=== PATIENT | female | born 1955 | race Caucasian/White ===

== ENCOUNTER → 2017-10-31 09:54 | Day surgery (SDC) | payer BC ==
--- NOTE | 2017-11-01 10:36 | OP ---
DATE OF OPERATION: 10/31/17 - [facility] DATE OF : 59 SURGEON: Nathanael Del Cid MD. PRE-OP DIAGNOSIS: Right vocal cord paralysis. POST-OP DIAGNOSIS: Right vocal cord paralysis. OPERATIVE PROCEDURE: EMG of the right vocal cord using a concentric bipolar needle electrode under local anesthesia. DESCRIPTION OF PROCEDURE: This was done in the local room with [facility] spray technician working with ar. The patient was placed in the supine position. The head was hyperextended. The cricoid cartilage and midline were demarcated and the skin over the cricothyroid membrane was injected with buffered lidocaine. A concentric bipolar electrode, 30 gauge, was inserted through the skin to the cricothyroid membrane and into the right vocal cord. Upon insertion, it was quiet; with phonation of "E," there were brisk compound muscle action potentials more posteriorly. There were rapid onset potentials with less vigorous sustained potentials. There were no random reinnervation potentials observed. The needle was removed. This was consistent with normal electromyography, normal nerve and muscle function. [id number]/[facility] #: [id number] MTDD
== END | disposition home or self-care (01) ==
LOC: OR 09:54
PROVIDERS: ATTEND Otolaryngology
DX: J38.01 Paralysis of vocal cords and larynx, unilateral (principal); R49.0 Dysphonia

== ENCOUNTER 2017-12-10 10:59 | Day surgery (SDC) | payer BC ==
[~2017-12-10 10:59] MED LIST: Buffered Lidocaine 0.9% SYRIN* 5 ML/SYR SYRINGE INTRADERM ONE; Dexamethasone IV* 4 MG/ML 1 ML (4 MG) IV SLOW PU ONE; Famotidine IV* 10 MG/ML 2 ML (20 mg) IV ONE
[2017-12-10] MEDS ORDERED: Buffered Lidocaine 0.9% SYRIN* 5 ML/SYR SYRINGE ONE (11:20)
[2017-12-10] MEDS ORDERED: Dexamethasone IV* 4 MG/ML 1 ML (4 MG) ONE (11:20)
[2017-12-10] MEDS ORDERED: Famotidine TAB* 20 MG ONE (11:20)
[2017-12-10] MEDS ORDERED: fentaNYL* 50 MCG/ML 2 ML VIAL (100 MCG VIAL) ONE (13:21)
[2017-12-10] MEDS ORDERED: Midazolam* 1 MG/ML 2 ML VIAL (2 MG) ONE (13:21)
[2017-12-10] MEDS ORDERED: Succinylcholine* 20 MG/ML 10 ML VIAL ONE ×2 (14:22→14:50)
[2017-12-10] MEDS ORDERED: Lidocaine 1% INJ* 10 MG/ML 30 ML SDV ONE (14:22)
[2017-12-10] MEDS ORDERED: Propofol* 10 MG/ML 20 ML BTL IV PUSH ONE (14:50)
[2017-12-10] MEDS ORDERED: Ondansetron INJ* 2 MG/ML VIAL ONE ×2 (14:50→15:32)
[2017-12-10] MEDS ORDERED: fentaNYL* 50 MCG/ML 2 ML VIAL (100 MCG VIAL) IV PRN (15:12)
[2017-12-10] MEDS ORDERED: Ondansetron INJ* 2 MG/ML VIAL IV PRN (15:12)
[2017-12-10] MEDS ORDERED: Naloxone* 0.4 MG/ML 1 ML VIAL IV PRN (15:12)
[2017-12-10 15:38] VITALS: BP 127/83
--- NOTE | 2017-12-11 06:28 | OP ---
DATE OF OPERATION: 12/10/17 - [facility] DATE OF : 59 SURGEON: Nathanael Del Cid MD ANESTHESIA: General endotracheal anesthesia. PRE-OP DIAGNOSIS: Right vocal cord paralysis, which I think might be secondary to a dislocated cricoarytenoid joint. POST-OP DIAGNOSIS: Right vocal cord paralysis, which I think might be secondary to a dislocated cricoarytenoid joint. OPERATIVE PROCEDURE: Microlaryngoscopy with closed reduction of right cricoarytenoid joint. COMPLICATIONS: None. DISPOSITION: Good. SPECIMENS: None. BLOOD LOSS: None. DESCRIPTION OF PROCEDURE: Patient was taken to the operating room and placed in the supine position on the operating table. General anesthesia was induced, orotracheally intubated, turned and draped for the surgery. Laryngoscope was inserted, suspended from the suspension system and the microscope was brought in. I used microlaryngoscopy spatula and suction to try to manipulate the right arytenoid cartilage back into position. It seemed to slip into place but I removed the endotracheal tube, did some more manipulation and replaced the tube through the laryngoscope and then removed the laryngoscope. Patient tolerated the procedure well, no complications, transferred to the recovery room in stable condition. [id number]/[facility] #: [id number] [facility] MEDICAL CENTERDave
== END 2017-12-10 15:54 | disposition home or self-care (01) ==
LOC: OR 10:59
PROVIDERS: ATTEND Otolaryngology
DX: J38.01 Paralysis of vocal cords and larynx, unilateral (principal); J38.7 Other diseases of larynx; K21.9 Gastro-esophageal reflux disease without esophagitis; M19.90 Unspecified osteoarthritis, unspecified site; K58.9 Irritable bowel syndrome, unspecified
CPT/HCPCS: A9270-GY; J0330; J1100; J2250; J2405; J2704; J3010

== ENCOUNTER 2018-02-09 07:25 | Day surgery (SDC) | payer BC ==
[~2018-02-09 07:25] MED LIST changes: -Famotidine IV* 10 MG/ML 2 ML (20 mg) IV ONE
[2018-02-09] MEDS ORDERED: Clindamycin 900 MG IVPREMIX(* 900 MG/50 ML SDV IV ONE (07:36)
[2018-02-09] MEDS ORDERED: Dexamethasone IV* 4 MG/ML 1 ML (4 MG) ONE (07:36)
[2018-02-09] MEDS ORDERED: Midazolam* 1 MG/ML 5 ML VIAL (5 MG) ONE (09:04)
[2018-02-09] MEDS ORDERED: fentaNYL* 50 MCG/ML 2 ML VIAL (100 MCG VIAL) ONE ×3 (09:04→12:03)
[2018-02-09] MEDS ORDERED: ROPIVACAINE 5 MG/ML 30 ML BTL (0.5%) ONE ×3 (09:21→09:41)
[2018-02-09] MEDS ORDERED: Lidocaine 2% PF * 5 ML VIAL ONE (10:06)
[2018-02-09] MEDS ORDERED: Mivacurium Chloride* 20 MG/10 ML VIAL IV ONE (10:06)
[2018-02-09] MEDS ORDERED: Propofol* 10 MG/ML 20 ML BTL IV PUSH ONE (10:06)
[2018-02-09] MEDS ORDERED: Phenylephrine IV* 40 MCG/ML 10 ML SYRINGE ONE (10:31)
[2018-02-09] MEDS ORDERED: Bupivacaine 0.5% SDV PF* 30ML VIAL ONE (10:39)
[2018-02-09] MEDS ORDERED: PROCHLORPERAZINE INJ 5 MG/ML 2 ML VIAL IV PRN (10:40)
[2018-02-09] MEDS ORDERED: Naloxone* 0.4 MG/ML 1 ML VIAL IV PRN (10:40)
[2018-02-09] MEDS ORDERED: HYDROcodone/ACETAMIN 5-325 MG* 1 TAB PO PRN (10:40)
[2018-02-09] MEDS ORDERED: Ketorolac INJ* 30 MG/ML 1 ML VIAL IV PRN (10:40)
[2018-02-09] MEDS ORDERED: Ondansetron INJ* 2 MG/ML VIAL IV ONE (10:41)
[2018-02-09] MEDS ORDERED: Ketorolac INJ* 30 MG/ML 1 ML VIAL ONE (11:53)
[2018-02-09] MEDS: fentaNYL* 50 MCG/ML 2 ML VIAL (100 MCG VIAL) IV PRN ×4 (11:55→12:16)
[2018-02-09] MEDS ORDERED: oxyCODONE/Acetamin 5/325 MG* TAB ONE (12:03)
[2018-02-09] MEDS: oxyCODONE/Acetamin 5/325 MG* TAB PO PRN ×2 (12:04→12:06)
[2018-02-09] MEDS ORDERED: PROCHLORPERAZINE INJ 5 MG/ML 2 ML VIAL ONE (12:06)
[2018-02-09 14:18] VITALS: BP 105/62
[2018-02-09] MEDS ORDERED: Scopolamine 1.5 mg* PATCH ONE (14:21)
--- NOTE | 2018-02-09 17:52 | RAD ---
INDICATION: Right foot subtalar joint fusion. COMPARISON: Comparison is made with a prior MRI of the right ankle from February 06, 2018. TECHNIQUE: 12 seconds of intermittent fluoroscopic guidance were provided and a single lateral spot film of the right ankle was obtained in the operating room. FINDINGS: There are 2 surgical screws which project over the calcaneus and talus spanning the subtalar joint. IMPRESSION: INTRAOPERATIVE CONTROL FILMS. CPT II Codes: G9500
--- NOTE | 2018-02-09 20:50 | OP ---
DATE OF OPERATION: 02/09/18 - [facility] DATE OF : 59 SURGEON: Alpesh Dudley MD SCREEN EXAMINER: Miranda Hong PA-C PRE-OP DIAGNOSIS: Right subtalar arthrosis. POST-OP DIAGNOSIS: Right subtalar arthrosis. OPERATIVE PROCEDURE: Right subtalar fusion with tibial bone graft. DESCRIPTION OF PROCEDURE: The patient was taken to the operating room, where a lateral longitudinal incision was made centered over the sinus tarsi. We incised directly through the extensor brevis muscle to allow visualization of the sinus tarsi, which was opened with a laminar automat watcher. We prepared the joint for arthrodesis using a 4-mm power bur. We then harvested some cancellous bone proximally at Gerdy's tubercle through a 5- cm longitudinal incision. We opened up the lateral cortex and harvested cancellous bone. We then replaced this with some allograft chips closing the periosteum with 2-0 Vicryl, subcu with 2-0 Vicryl, and a 3-0 Monocryl for the skin. We then placed the allograft mixed with autograft into the subtalar joint fixing this with paired 6.5-mm cannulated screws. X-rays intraoperatively showed satisfactory position of the hardware and good compression obtained. We then irrigated both medial and lateral wounds, closing with 2-0 Vicryl sutures, Prolene for the skin, and ava for the lateral skin wound. A compression dressing and plaster splint was then applied. The patient tolerated the above well. [id number]/[facility] #: [id number] [place]
== END 2018-02-09 15:07 | disposition home or self-care (01) ==
LOC: OR 07:25
PROVIDERS: ATTEND Orthopaedic Surgery
DX: M19.171 Post-traumatic osteoarthritis, right ankle and foot (principal); J45.909 Unspecified asthma, uncomplicated; K21.9 Gastro-esophageal reflux disease without esophagitis; M48.061 Spinal stenosis, lumbar region without neurogenic claudication; Z68.41 Body mass index [BMI] 40.0-44.9, adult; G89.18 Other acute postprocedural pain
CPT/HCPCS: 76000; A9270-GY; C1713; C1776; C9359; J0780; J1100; J1885; J2250; J2405; J2704; J2795; J3010

== ENCOUNTER → 2019-01-21 20:16 | Emergency (ER) | payer BC ==
[2019-01-21 20:41] LABS: ABS Eosinophils 0.2 10^3/ul (0-0.6); ABS Lymphocytes 2.4 10^3/ul (1.0-4.8); ABS Monocytes 0.5 10^3/ul (0-0.8); ABS Neutrophils 4.1 10^3/ul (1.5-7.7); Eosinophil % 2.9 %; Hematocrit 43 % (35-47); Hemoglobin 14.2 g/dL (12.0-16.0); Lymphocyte % 33.1 %; Mean Corpuscular HGB Conc 33 g/dL (31-36); Mean Corpuscular Hemoglobin 29 pg (27-31); Mean Corpuscular Volume 87 fL (80-97); Mean Platelet Volume 7.6 fL (7.4-10.4); Platelet Count 292 10^3/uL (150-450); Red Blood Count 4.91 10^6 /uL (3.70-4.87); Red Cell Distribution Width 15 % (10.5-15); White Blood Count 7.3 10^3/uL (3.5-10.8)
[2019-01-21 20:47] LABS: INR 1.03 (0.82-1.09)
--- NOTE | 2019-01-21 20:54 | ED ---
HPI Chest Pain - HPI Summary HPI Summary: Pt is a 63 y/o F presenting to the ED with a chief complaint of chest pain first onset about 1.5 weeks ago. The pain is intermittent, lasts about 10 seconds at a time, but is very severe and she feels it in her neck, shoulders, back, and L arm, and describes it as pressure. She denies diaphoresis, syncope, fever, chills, cough, or recent illness. She states that she was taking IBU for her L knee which she stated it was not doing much so she switched back to Celebrex, and is wondering if this could be a side effect of the Celebrex. She denies anything making it worse but notes that it happened once when she was stretching, and deep breathing makes it better. She reports hx of an adrenal tumor that flares up sometimes, but no other hx. - History of Current Complaint Chief Complaint: EDChestPainROMI Time Seen by Provider: 01/21/19 20:31 Hx Obtained From: Patient Onset/Duration: Started Days Ago, Still Present Timing: Intermittent, Lasting Seconds Initial Severity: Moderate Current Severity: None Pain Intensity: 0 Pain Scale Used: 0-10 Numeric Chest Pain Location: Diffuse Chest Pain Radiates: Yes Chest Pain Radiates To:: Back, Shoulder, Arm, Neck Character: Pressure/Squeezing Aggravating Factor(s): Nothing Alleviating Factor(s): Rest Associated Signs and Symptoms: Positive: Chest Pain, Back Pain. Negative: Syncope, Fever, Chills, Cough, Other: - recent illness - Allergy/Home Medications Allergies/Adverse Reactions: Allergies Allergy/AdvReac Type Severity Reaction Status Date / Time Penicillins Allergy Rash Verified 01/21/19 20:18 PMH/Surg Hx/FS Hx/Imm Hx Previously Healthy: Yes Endocrine/Hematology History: Denies: Hx Diabetes, Hx Thyroid Disease - HX OF BIOPSY OF THYROID TISSUE-2015 Cardiovascular History: Denies: Hx Congestive Heart Failure, Hx Hypertension, Hx Pacemaker/ICD, Other Cardiovascular Problems/Disorders Respiratory History: Reports: Hx Asthma, Other Respiratory Problems/Disorders - chronic post nasal drip Denies: Hx Chronic Obstructive Pulmonary Disease (COPD) GI History: Reports: Hx Gastroesophageal Reflux Disease - ON MEDICATION FOR, Hx Hiatal Hernia, Hx Irritable Bowel, Hx Ulcer - gerd, Other GI Disorders - SPASTIC COLON History: Reports: Other Problems/Disorders - right adrenal mass Denies: Hx Dialysis, Hx Renal Disease Musculoskeletal History: Reports: Hx Arthritis - KNEES, ANKLES Denies: Hx Osteoporosis, Other Musculoskeletal History Sensory History: Denies: Hx Contacts or Glasses, Hx Hearing Aid Opthamlomology History: Denies: Hx Contacts or Glasses Neurological History: Denies: Other Neuro Impairments/Disorders Psychiatric History: Denies: Hx Panic Disorder - Surgical History Surgery Procedure, Year, and Place: EBUS-10/04/2015 (BIOPSY) ;. HYSTERECTOMY 2002; BILATERAL CARPAL TUNNEL RELEASE 2002 ;. CHEST BLEED-10/06/2015-VENTED X 4 DAYS (NO SURGERY - STARTED AFTER THE BIOPSY) ;. PARATRACHIAL SURGERY FOR A PARATHYROID MASS IN 06/2016-[place] ;. CLOSED REDUCTION ARYTONOID (CARTILAGE ) ; Hx Anesthesia Reactions: No Infectious Disease History: No Infectious Disease History: Denies: Hx Clostridium Difficile, Hx Hepatitis, Hx Human Immunodeficiency Virus (HIV), Hx of Known/Suspected MRSA, Hx Shingles, Hx Tuberculosis, Traveled Outside the in Last 30 Days - Family History Known Family History: Positive: Cardiac Disease - mother had afib, Other - liver CA - grandfather - Social History Alcohol Use: None Hx Substance Use: No Substance Use Type: Reports: None Hx Tobacco Use: No Smoking Status (MU): Never Smoked Tobacco Review of Systems Negative: Fever, Chills, Skin Diaphoresis Positive: Chest Pain Negative: Cough Negative: Syncope All Other Systems Reviewed And Are Negative: Yes Physical Exam - Summary Physical Exam Summary: Appearance: Well-appearing, Well-nourished, lying in bed comfortably Skin: Warm, dry, no obvious rash Eyes: sclera anicteric, no conjunctival pallor ENT: mucous membranes moist, pharynx appears normal Neck: Supple, nontender Respiratory: Clear to auscultation, no signs of respiratory distress Cardiovascular: Normal S1, S2. No murmurs. Normal distal pulses in tibial and radial bilaterally. Abdomen: Soft, nontender, normal active bowel sounds present Musculoskeletal: Normal, Strength/ROM Intact Neurological: A&Ox3, awake and alert, mentation is normal, speech is fluent and appropriate Psychiatric: affect is normal, does not appear anxious or depressed Triage Information Reviewed: Yes Vital Signs On Initial Exam: Initial Vitals Temp Pulse Resp BP Pulse Ox 99.1 F 67 12 134/76 97 05/23/19 20:16 01/21/19 20:16 01/21/19 20:16 01/21/19 20:16 01/21/19 20:16 Vital Signs Reviewed: Yes Diagnostics - Vital Signs Vital Signs Temp Pulse Resp BP Pulse Ox 01/21/19 20:16 99.1 F 67 12 134/76 97 - Laboratory Lab Results: Lab Results 01/21/19 01/21/19 Range/Units 20:34 20:34 WBC 7.3 (3.5-10.8) 10^3/uL RBC 4.91 H (3.70-4.87) 10^6 /uL Hgb 14.2 (12.0-16.0) g/dL Hct 43 (35-47) % MCV 87 (80-97) fL MCH 29 (27-31) pg MCHC 33 (31-36) g/dL RDW 15 (10.5-15) % Plt Count 292 (150-450) 10^3/uL MPV 7.6 (7.4-10.4) fL Neut % (Auto) 56.1 % Lymph % (Auto) 33.1 % [place] % (Auto) 7.3 % Eos % (Auto) 2.9 % Baso % (Auto) 0.6 % Absolute Neuts (auto) 4.1 (1.5-7.7) 10^3/ul Absolute Lymphs (auto) 2.4 (1.0-4.8) 10^3/ul Absolute Monos (auto) 0.5 (0-0.8) 10^3/ul Absolute Eos (auto) 0.2 (0-0.6) 10^3/ul Absolute Basos (auto) 0.0 (0-0.2) 10^3/ul Absolute Nucleated RBC 0.0 10^3/ul Nucleated RBC % 0.0 INR (Anticoag Therapy) 1.03 (0.82-1.09) Result Diagrams: 01/21/19 20:34 01/21/19 20:34 Lab Statement: Any lab studies that have been ordered have been reviewed, and results considered in the medical decision making process. - Radiology CXR Radiology Interpretation Completed By: ED Physician Summary of Radiographic Findings: No acute process. Pending official radiology report. - EKG 2023 Cardiac Rate: NL - 68bpm EKG Rhythm: Sinus Rhythm ST Segment: Normal Ectopy: None Summary of EKG Findings: EKG at 2023 shows NSR at 68bpm with no STEMI. Chest Pain Course/Dx - Course Course Of Treatment: Pt is a 63 y/o F presenting to the ED with a chief complaint of chest pain first onset about 1.5 weeks ago. It is intermittent pressure lasting about 10 seconds, and radiates across her shoulders, neck, back , and L arm. She denies diaphoresis, syncope, fever, chills, cough, or recent illness. She states she's been recently taking Celebrex for her L knee issues and is wondering if the pain could be a side effect of it. She notes it happened once when she was stretching but nothing makes it worse otherwise. The pt has a normal physical exam. EKG at 2023 shows NSR at 68bpm with no STEMI. The pts chemistry results show a BUN of 25, BUN/Creatinine ratio of 32.5, and alkaline phosphate of 108. CXR shows no acute process, pending official radiology report. The pt will be discharged with a dx of chest pain, and she is stable and agreeable with this plan. - Diagnoses Provider Diagnoses: Chest pain Discharge - Sign-Out/Discharge Documenting (check all that apply): Patient Departure Patient Received Moderate/Deep Sedation with Procedure: No - Discharge Plan Condition: Good Disposition: HOME Patient Education Materials: Chest Pain (ED) Referrals: Joshua Goldsmith MD [Primary Care Provider] - Additional Instructions: The evaluation we did tonight demonstrated that there is a very low risk that your symptoms are related to a cardiac or other immediately dangerous condition , so it is safe for you to go home tonight without further testing. However, followup with your doctor is important to get to a more definitive diagnosis. Certainly if your symptoms change, ie. persist longer, occur more frequently, or change in character or severity, we should see you back here. - Billing Disposition and Condition Condition: GOOD Disposition: Home - Attestation Statements Document Initiated by Scribe: Yes Documenting Scribe: Taylor Hyde Provider For Whom Bakariibe is Documenting (Include Credential): Moo Self MD. Scribe Attestation: Taylor Wynn, scribed for Moo Self MD. on 01/26/19 at 1822. Scribe Documentation Reviewed: Yes Provider Attestation: The documentation as recorded by the scribe, Taylor Hyde accurately reflects the service I personally performed and the decisions made by me, Moo Self MD. Status of Scribe Document: Viewed
[2019-01-21 21:01] LABS: Albumin 4.4 g/dL (3.2-5.2); Albumin/Globulin Ratio 1.5 (1-3); BUN/Creatinine Ratio 32.5 (8-20); Calcium 9.6 mg/dL (8.6-10.3); EGFR African American 92.2 (>60); EGFR Non-African American 76.2 (>60); Potassium 4.3 mmol/L (3.5-5.0); Total Bilirubin 0.3 mg/dL (0.2-1.0); Total Protein 7.4 g/dL (6.4-8.9)
[2019-01-21 22:51] VITALS: BP 128/65
== END | disposition home or self-care (01) ==
LOC: ED 20:16
DX: R07.9 Chest pain, unspecified (principal); R94.31 Abnormal electrocardiogram [ECG] [EKG]; J45.909 Unspecified asthma, uncomplicated; K21.9 Gastro-esophageal reflux disease without esophagitis; K58.9 Irritable bowel syndrome, unspecified; K44.9 Diaphragmatic hernia without obstruction or gangrene; Z88.0 Allergy status to penicillin; Z79.899 Other long term (current) drug therapy
CPT/HCPCS: 36415; 71046; 80053; 84484; 85025; 85610; 93005; 99282

== ENCOUNTER 2019-02-05 09:54 | Day surgery (SDC) | payer BC ==
[~2019-02-05 09:54] MED LIST changes: -Buffered Lidocaine 0.9% SYRIN* 5 ML/SYR SYRINGE INTRADERM ONE; +Buffered Lidocaine 1% SYRIN* 1 ML/SYRINGE INTRADERM ONE; -Dexamethasone IV* 4 MG/ML 1 ML (4 MG) IV SLOW PU ONE; +Famotidine IV* 10 MG/ML 2 ML (20 mg) IV ONE; +Lactated Ringers 1000 ML Bag* 1,000 ML IV SCH
[2019-02-05] MEDS ORDERED: Buffered Lidocaine 1% SYRIN* 1 ML/SYRINGE INTRADERM ONE (10:24)
[2019-02-05] MEDS ORDERED: Famotidine IV* 10 MG/ML 2 ML (20 mg) ONE (10:24)
[2019-02-05] MEDS ORDERED: EPINEPHRINE 1 MG/ML 1 ML VIAL ONE (10:58)
[2019-02-05] MEDS ORDERED: Lidocaine 4% TOPICAL* 50 ML TOP.SOLN ONE (11:39)
[2019-02-05] MEDS ORDERED: Oxymetazoline 0.05% NASAL SPR* 15 ML BTL ONE (11:39)
[2019-02-05] MEDS ORDERED: Ondansetron INJ* 2 MG/ML VIAL ONE (11:43)
[2019-02-05] MEDS ORDERED: fentaNYL* 50 MCG/ML 2 ML VIAL (100 MCG VIAL) ONE ×2 (11:43→12:44)
[2019-02-05] MEDS ORDERED: Dexamethasone IV* 4 MG/ML 1 ML (4 MG) ONE (11:43)
[2019-02-05] MEDS ORDERED: Propofol* 10 MG/ML 20 ML BTL ONE (11:43)
[2019-02-05] MEDS ORDERED: Lidocaine 2% PF * 5 ML VIAL ONE (11:43)
[2019-02-05] MEDS ORDERED: Midazolam* 1 MG/ML 5 ML VIAL (5 MG) ONE (11:44)
[2019-02-05] MEDS ORDERED: fentaNYL* 50 MCG/ML 2 ML VIAL (100 MCG VIAL) IV PRN (12:40)
[2019-02-05] MEDS ORDERED: Ondansetron INJ* 2 MG/ML VIAL IV PRN (12:40)
[2019-02-05] MEDS ORDERED: Naloxone* 0.4 MG/ML 1 ML VIAL IV PRN (12:40)
[2019-02-05 14:15] VITALS: BP 144/77
--- NOTE | 2019-02-05 14:33 | OP ---
DATE OF OPERATION: 02/05/19 - [facility] DATE OF : 59 SURGEON: Joshua Del Cid MD ANESTHESIA: General endotracheal anesthesia PRE-OP DIAGNOSIS: Right vocal paralysis POST-OP DIAGNOSIS: Right vocal paralysis OPERATIVE PROCEDURE: Microlaryngoscopy with manipulation of the right arytenoid and Prolaryn Gel injection into the right vocal cord with 1 mL of Prolaryn under general endotracheal anesthesia. COMPLICATIONS: None. DISPOSITION: Good. SPECIMENS: None. ESTIMATED BLOOD LOSS: None. DESCRIPTION OF PROCEDURE: The patient was taken to the operating room and placed in the supine position on the operating table. General anesthesia was induced and she was orotracheally intubated, turned and draped for the surgery. A tooth guard was placed on her upper teeth, the laryngoscope was inserted into the supraglottic larynx to visualize the vocal cords and it was suspended from the suspension system. Microscope was brought in. The first thing I did was take a spatula and suction. I manipulated the arytenoid in various directions, trying to release it and get it to shift back into position. Her vocal cords were anesthetized with 4% lidocaine and oxymetazoline. I then took the Prolaryn Gel, which is the temporary implant, and had it in the injection needle and injected the full 1 mL into several different locations. There was some leakage, so the total amount was not injected. The laryngoscope was released and removed and the tooth guard was removed. The patient tolerated the procedure well. No complications, transferred to recovery room in stable condition. [id number]/[facility] #: [id number] MTDD
== END 2019-02-05 14:15 | disposition home or self-care (01) ==
LOC: OR 09:54
PROVIDERS: ATTEND Otolaryngology
DX: J38.01 Paralysis of vocal cords and larynx, unilateral (principal); R49.0 Dysphonia; K21.9 Gastro-esophageal reflux disease without esophagitis; M19.90 Unspecified osteoarthritis, unspecified site
CPT/HCPCS: A9270-GY; J1100; J2250; J2405; J2704; J3010

== ENCOUNTER → 2019-06-24 09:25 | Day surgery (SDC) | payer BC ==
[~2019-06-24 09:25] MED LIST changes: +Clindamycin 900 MG/D5W BAG(*) 900 MG/50 ML BAG IVPB ONE; +Dexamethasone IV* 4 MG/ML 1 ML (4 MG) ONE; +Famotidine IV* 10 MG/ML 2 ML (20 mg) ONE; +KETAMINE HCL* 50 MG/ML 10 ML VIAL ONE; +Lidocaine 2% PF * 5 ML VIAL ONE; +Midazolam* 1 MG/ML 10 ML VIAL (10 MG) ONE; +Mineral Oil Sterile, TOPICAL* 25 ML BTL ONE; +Naloxone* 0.4 MG/ML 1 ML VIAL IV PRN; +Ondansetron INJ* 2 MG/ML VIAL ONE; +Ondansetron ODT TAB* 4 MG PO PRN; +Propofol* 10 MG/ML 20 ML BTL ONE; +fentaNYL* 50 MCG/ML 2 ML VIAL (100 MCG VIAL) IV PRN; +fentaNYL* 50 MCG/ML 2 ML VIAL (100 MCG VIAL) ONE; +oxyCODONE/Acetamin 5/325 MG* TAB PO PRN
[2019-06-24 16:17] VITALS: BP 109/68
== END | disposition home or self-care (01) ==
LOC: OR 09:25
PROVIDERS: ATTEND Plastic Surgery
DX: C44.719 Basal cell carcinoma of skin of left lower limb, including hip (principal); J45.909 Unspecified asthma, uncomplicated; K21.9 Gastro-esophageal reflux disease without esophagitis; M19.90 Unspecified osteoarthritis, unspecified site
CPT/HCPCS: 88305; 88331; 88332; A9270-GY; J1100; J2250; J2405; J2704; J3010

== ENCOUNTER 2019-12-07 13:46 | Emergency (ER) | payer BC ==
[2019-12-07 15:41] LABS: ABS Eosinophils 0.2 10^3/ul (0-0.6); ABS Lymphocytes 2.5 10^3/ul (1.0-4.8); ABS Monocytes 0.4 10^3/ul (0-0.8); Eosinophil % 3.2 %; Hematocrit 40 % (35-47); Hemoglobin 13.6 g/dL (12.0-16.0); Lymphocyte % 49.3 %; Mean Corpuscular HGB Conc 34 g/dL (31-36); Mean Corpuscular Hemoglobin 29 pg (27-31); Mean Corpuscular Volume 85 fL (80-97); Mean Platelet Volume 7.8 fL (7.4-10.4); Nucleated Red Blood Cells % 0.1; Platelet Count 245 10^3/uL (150-450); Red Blood Count 4.71 10^6 /uL (3.70-4.87); Red Cell Distribution Width 14 % (10-15); White Blood Count 5.1 10^3/uL (3.5-10.8)
[2019-12-07 16:02] LABS: Albumin/Globulin Ratio 1.4 (1-3); BUN/Creatinine Ratio 20.6 (8-20); Calcium 9.4 mg/dL (8.6-10.3); EGFR African American 106.1 (>60); EGFR Non-African American 87.7 (>60); Globulin 2.8 g/dL (2-4); Magnesium 2.1 mg/dL (1.9-2.7); Potassium 3.6 mmol/L (3.5-5.0); Total Bilirubin 0.4 mg/dL (0.2-1.0); Total Protein 6.8 g/dL (6.4-8.9)
--- NOTE | 2019-12-07 16:11 | ED ---
Syncope/Near Syncope - HPI Summary HPI Summary: Pt. is a 64 y.o female who presents to the ER for evaluation of a feeling or near syncope over the last few weeks. Pt. notes she has been experiencing episodes where she feels dizzy and like she is going to pass out. Episodes are not associated with chest pain, SOB, vision changes, numbness/tingling/ weakness. Past medical hx of adrenal mass. Denies recent illness, fever, cough, SOB, abd. pain, V/D. Pt. notes sxs are mild at this time. No current modifying factors. - History Of Current Complaint Chief Complaint: EDDizziness Time Seen by Provider: 12/07/19 15:13 Hx Obtained From: Patient - Allergies/Home Medications Allergies/Adverse Reactions: Allergies Allergy/AdvReac Type Severity Reaction Status Date / Time Penicillins Allergy Intermediate Rash Verified 12/07/19 13:47 Influenza Virus Vaccines Allergy Anaphylatic Verified 12/07/19 13:49 Shock erythromycin base AdvReac GI Upset Verified 12/07/19 13:47 Home Medications: Home Medications Cyclobenzaprine TAB* [Flexeril TAB*] 5 mg PO DAILY PRN 03/02/15 [History Confirmed 06/24/19] Acetaminophen [Acetaminophen Extra Strength] 1,000 mg PO BID PRN 11/20/17 [ History Confirmed 06/24/19] Albuterol HFA INHALER* [Ventolin HFA Inhaler*] 2 puff INH Q4H PRN 11/20/17 [ History Confirmed 06/24/19] raNITIdine HCL [Ranitidine HCl] 300 mg PO QPM PRN 11/20/17 [History Confirmed ] Cholecalciferol (Vitamin D3) [Vitamin D-3] 2,000 unit PO QAM 02/01/19 [History Confirmed 06/24/19] Cyanocobalamin TAB* [Vitamin B12 TAB*] 5,000 mcg PO QAM 02/01/19 [History Confirmed 06/24/19] Gabapentin CAP(*) [Neurontin 300 CAP(*)] 300 mg PO BEDTIME PRN 02/01/19 [ History Confirmed 06/24/19] Grape Seed Extract 1 tab PO QAM 02/01/19 [History Confirmed 06/24/19] Ubidecarenone [Coq-10 Tr] 100 mg PO QAM 02/01/19 [History Confirmed 06/24/19] celeCOXIB CAP* [CeleBREX CAP*] 200 mg PO BID PRN 02/01/19 [History Confirmed ] Ibuprofen [Ibu] 800 mg PO BID PRN 06/18/19 [History Confirmed 06/24/19] PMH/Surg Hx/FS Hx/Imm Hx Previously Healthy: Yes Endocrine/Hematology History: Denies: Hx Diabetes, Hx Thyroid Disease - HX OF BIOPSY OF THYROID TISSUE-2015 Cardiovascular History: Denies: Hx Congestive Heart Failure, Hx Hypertension, Hx Pacemaker/ICD, Other Cardiovascular Problems/Disorders Respiratory History: Reports: Hx Asthma, Other Respiratory Problems/Disorders - chronic post nasal drip, ONLY ONE VOCAL CORD Denies: Hx Chronic Obstructive Pulmonary Disease (COPD) GI History: Reports: Hx Gastroesophageal Reflux Disease - ON MEDICATION FOR, Hx Hiatal Hernia, Hx Irritable Bowel, Hx Ulcer - gerd, Other GI Disorders - SPASTIC COLON History: Reports: Other Problems/Disorders - right adrenal mass Denies: Hx Dialysis, Hx Renal Disease Musculoskeletal History: Reports: Hx Arthritis - KNEES, ANKLES, Other Musculoskeletal History - BACK SPRAIN 05/20/19 [place] Denies: Hx Osteoporosis Sensory History: Denies: Hx Contacts or Glasses, Hx Hearing Aid Opthamlomology History: Denies: Hx Contacts or Glasses Neurological History: Reports: Other Neuro Impairments/Disorders - BILAT SCIATIAC/ PAIN Psychiatric History: Denies: Hx Panic Disorder - Cancer History Hx Chemotherapy: No - Surgical History Surgery Procedure, Year, and Place: EBUS-10/04/2015 (BIOPSY) ;. HYSTERECTOMY 2002; BILATERAL CARPAL TUNNEL RELEASE 2002 ;. CHEST BLEED-10/06/2015-VENTED X 4 DAYS (NO SURGERY - STARTED AFTER THE BIOPSY) ;. PARATRACHIAL SURGERY FOR A PARATHYROID MASS IN 06/2016-[place] ;. CLOSED REDUCTION ARYTONOID (CARTILAGE ) REPAIRED VOCAL CORD X 2 [facility]; Hx Anesthesia Reactions: No Infectious Disease History: No Infectious Disease History: Denies: Hx Clostridium Difficile, Hx Hepatitis, Hx Human Immunodeficiency Virus (HIV), Hx of Known/Suspected MRSA, Hx Shingles, Hx Tuberculosis, Traveled Outside the [place] in Last 30 Days - Family History Known Family History: Positive: Cardiac Disease - mother had afib, Other - liver CA - grandfather, Non-Contributory - Social History Occupation: Employed Full-time Lives: With Family Alcohol Use: None Alcohol Amount: 2 DRINKS PER MONTH Hx Substance Use: No Substance Use Type: Reports: Excessive Caffeine Hx Tobacco Use: No Smoking Status (MU): Never Smoked Tobacco Review of Systems Constitutional: Negative Negative: Fever, Chills Eyes: Negative ENT: Negative Cardiovascular: Negative Negative: Palpitations, Chest Pain Respiratory: Negative Negative: Shortness Of Breath, Cough Gastrointestinal: Negative Negative: Abdominal Pain, Vomiting, Diarrhea Genitourinary: Negative Negative: dysuria Skin: Negative Neurological/Mental Status: Negative Negative: Headache, Weakness, Paresthesia, Numbness, Syncope, Slurred Speech All Other Systems Reviewed And Are Negative: Yes Physical Exam Triage Information Reviewed: Yes Vital Signs On Initial Exam: Initial Vitals Temp Pulse Resp BP Pulse Ox 98.0 F 77 18 137/86 100 12/07/19 13:47 12/07/19 13:47 12/07/19 13:47 12/07/19 13:47 12/07/19 13:47 Vital Signs Reviewed: Yes Appearance: Positive: Well-Appearing - Pt. sitting up in bed in NAD. Pleasant and talkative. Skin: Positive: Warm, Dry Head/Face: Positive: Normal Head/Face Inspection Eyes: Positive: Normal, EOMI Neck: Positive: Supple Respiratory/Lung Sounds: Positive: Clear to Auscultation, Breath Sounds Present Cardiovascular: Positive: Normal, RRR Musculoskeletal: Positive: Normal, Strength/ROM Intact. Negative: Edema Left, Edema Right Neurological: Positive: Normal, Alert, Oriented to Person Place, Time, CN Intact II-III Psychiatric: Positive: Affect/Mood Appropriate Procedures - Sedation Patient Received Moderate/Deep Sedation with Procedure: No Diagnostics - Vital Signs Vital Signs Temp Pulse Resp BP Pulse Ox 12/07/19 15:59 65 124/93 99 12/07/19 15:42 57 99 12/07/19 15:29 59 119/78 99 12/07/19 13:47 98.0 F 77 18 137/86 100 - Laboratory Lab Results: Lab Results 12/07/19 12/07/19 Range/Units 15:35 15:35 WBC 5.1 (3.5-10.8) 10^3/uL RBC 4.71 (3.70-4.87) 10^6 /uL Hgb 13.6 (12.0-16.0) g/dL Hct 40 (35-47) % MCV 85 (80-97) fL MCH 29 (27-31) pg MCHC 34 (31-36) g/dL RDW 14 (10-15) % Plt Count 245 (150-450) 10^3/uL MPV 7.8 (7.4-10.4) fL Neut % (Auto) 39.2 % Lymph % (Auto) 49.3 % [place] % (Auto) 7.5 % Eos % (Auto) 3.2 % Baso % (Auto) 0.8 % Absolute Neuts (auto) 2.0 (1.5-7.7) 10^3/ul Absolute Lymphs (auto) 2.5 (1.0-4.8) 10^3/ul Absolute Monos (auto) 0.4 (0-0.8) 10^3/ul Absolute Eos (auto) 0.2 (0-0.6) 10^3/ul Absolute Basos (auto) 0.0 (0-0.2) 10^3/ul Absolute Nucleated RBC 0.0 10^3/ul Nucleated RBC % 0.1 Sodium 139 (135-145) mmol/L Potassium 3.6 (3.5-5.0) mmol/L Chloride 104 (101-111) mmol/L Carbon Dioxide 30 (22-32) mmol/L Anion Gap 5 (2-11) mmol/L BUN 14 (6-24) mg/dL Creatinine 0.68 (0.51-0.95) mg/dL Est GFR ( Amer) 106.1 (>60) Est GFR (Non-Af Amer) 87.7 (>60) BUN/Creatinine Ratio 20.6 H (8-20) Glucose 101 H (70-100) mg/dL Calcium 9.4 (8.6-10.3) mg/dL Magnesium 2.1 (1.9-2.7) mg/dL Total Bilirubin 0.40 (0.2-1.0) mg/dL AST 19 (13-39) U/L ALT 17 (7-52) U/L Alkaline Phosphatase 96 (34-104) U/L Troponin I 0.00 (<0.03) ng/mL Total Protein 6.8 (6.4-8.9) g/dL Albumin 4.0 (3.2-5.2) g/dL Globulin 2.8 (2-4) g/dL Albumin/Globulin Ratio 1.4 (1-3) TSH Pending Result Diagrams: 12/07/19 15:35 12/07/19 15:35 Lab Statement: Any lab studies that have been ordered have been reviewed, and results considered in the medical decision making process. Course/Dx Assessment/Plan: Pt. with c.o feeling near syncopal over the last few weeks. Afebrile with stable VS. Pt. feeling better in ED. On monitor. ECG done at 1358 shows a sinus rhythm of 63bpm, left axis deviation, appropriate intervals, no STEMI, unchanged to prior tracing. Labs unremarkable. Pt. requesting to be discharged at this time. Results discussed. She notes she currently does not have a PCP. [facility] info given for f.u. Will return to er if sxs change or worse. Pt. understands and agrees with plan. - Diagnoses Differential Diagnosis/HQI/PQRI: Positive: Coronary Artery Disease, Dysrhythmia , Hypoglycemia, Hypovolemia, Metabolic Reaction, Myocardial Infarction, Seizure , Vasovagal Episode. Negative: Cerebral Vascular Accident Provider Diagnoses: Near syncope Discharge ED - Sign-Out/Discharge Documenting (check all that apply): Patient Departure - Discharge Plan Condition: Good Disposition: HOME Patient Education Materials: Near Syncope (ED), Lightheadedness (ED) Referrals: [facility] [Outside] Additional Instructions: Please call your PCP today to schedule a follow up appointment within one week for recheck Return to ER if symptoms change or worsen - Billing Disposition and Condition Condition: GOOD Disposition: Home
[2019-12-07 16:33] LABS: TSH (Thyroid Stimulating Horm) 0.89 mcIU/mL (0.34-5.60)
[2019-12-07 16:41] LABS: Urine Appearance Clear; Urine Bilirubin Negative (Negative); Urine Blood Negative (Negative); Urine Color Straw; Urine Glucose Negative (Negative); Urine Ketones Negative (Negative); Urine Nitrite Negative (Negative); Urine Protein Negative (Negative); Urine Specific Gravity 1.008 (1.010-1.030); Urine Urobilinogen Negative (Negative)
[2019-12-07 16:57] VITALS: BP 134/87
== END 2019-12-07 16:56 | disposition home or self-care (01) ==
LOC: ED 13:46
DX: R55 Syncope and collapse (principal); J45.909 Unspecified asthma, uncomplicated; K21.9 Gastro-esophageal reflux disease without esophagitis; Z90.710 Acquired absence of both cervix and uterus; Z88.1 Allergy status to other antibiotic agents; Z88.0 Allergy status to penicillin; Z88.7 Allergy status to serum and vaccine
CPT/HCPCS: 36415; 80053; 81003; 83735; 84443; 84484; 85025; 93005; 99282

== ENCOUNTER 2021-04-03 11:57 | Inpatient (IN) ==
[~2021-04-03 11:57] MED LIST changes: +Buffered Lidocaine 1% SYRIN 1 ml INTRADERM ONE; -Buffered Lidocaine 1% SYRIN* 1 ML/SYRINGE INTRADERM ONE; -Clindamycin 900 MG/D5W BAG(*) 900 MG/50 ML BAG IVPB ONE; +Dexamethasone IV 4 MG/ML VIAL 1 ml VIAL IV SLOW PU ONE; -Dexamethasone IV* 4 MG/ML 1 ML (4 MG) ONE; +Famotidine IV 10 MG/ML 2 ml VIAL (20 mg) IV ONE; -Famotidine IV* 10 MG/ML 2 ML (20 mg) IV ONE; -Famotidine IV* 10 MG/ML 2 ML (20 mg) ONE; -KETAMINE HCL* 50 MG/ML 10 ML VIAL ONE; -Lactated Ringers 1000 ML Bag* 1,000 ML IV SCH; +Lactated Ringers 1000 ml BAG 1,000 ML IV SCH; -Lidocaine 2% PF * 5 ML VIAL ONE; -Midazolam* 1 MG/ML 10 ML VIAL (10 MG) ONE; -Mineral Oil Sterile, TOPICAL* 25 ML BTL ONE; -Naloxone* 0.4 MG/ML 1 ML VIAL IV PRN; -Ondansetron INJ* 2 MG/ML VIAL ONE; -Ondansetron ODT TAB* 4 MG PO PRN; -Propofol* 10 MG/ML 20 ML BTL ONE; -fentaNYL* 50 MCG/ML 2 ML VIAL (100 MCG VIAL) IV PRN; -fentaNYL* 50 MCG/ML 2 ML VIAL (100 MCG VIAL) ONE; -oxyCODONE/Acetamin 5/325 MG* TAB PO PRN
[2021-04-03] MEDS ORDERED: Dexamethasone IV 4 MG/ML VIAL 1 ml VIAL ONE ×2 (12:32→14:41)
[2021-04-03] MEDS ORDERED: Clindamycin 900 MG/D5W BAG 900 MG/50 ML BAG IVPB ONE (12:33)
[2021-04-03] MEDS ORDERED: Famotidine IV 10 MG/ML 2 ml VIAL (20 mg) ONE (12:33)
[2021-04-03] MEDS ORDERED: Ropivacaine 5 MG/ML 20 ML VIAL 0.5% (100 MG) ONE (14:01)
[2021-04-03] MEDS ORDERED: Ondansetron 4 mg VIAL 2 MG/ML 2 ml VIAL ONE (14:41)
[2021-04-03] MEDS ORDERED: Lidocaine 2% PF 5 ML VIAL ONE (14:41)
[2021-04-03] MEDS ORDERED: Propofol 10 MG/ML 20 ML BTL ONE ×2 (14:41→15:53)
[2021-04-03] MEDS ORDERED: fentaNYL 100 mcg/2 ml 50 MCG/ML VIAL ONE (14:41)
[2021-04-03] MEDS ORDERED: Midazolam 10 mg/10 ml VIAL 1 mg/ml 10 ml VIAL (10 mg) ONE (14:42)
[2021-04-03] MEDS ORDERED: Ketamine HCL 50 mg/ml 10 ml VIAL (500 MG) ONE (14:42)
[2021-04-03] MEDS ORDERED: Lactulose 30 ml UDC PO PRN (15:40)
[2021-04-03] MEDS ORDERED: Ondansetron ODT 4 mg TAB 4 MG TAB PO PRN (15:40)
[2021-04-03] MEDS ORDERED: Ondansetron 4 mg VIAL 2 MG/ML 2 ml VIAL IV PRN (15:40)
[2021-04-03] MEDS ORDERED: diPHENhydraMINE IV 50 MG/ML 1 ml VIAL (BENADRYL) IV PRN (15:40)
[2021-04-03] MEDS ORDERED: Magnesium Hydroxide LIQ 30 ML UDC PO PRN (15:40)
[2021-04-03] MEDS ORDERED: diPHENhydraMINE 25 mg TAB PO PRN (15:40)
[2021-04-03] MEDS ORDERED: Morphine 2 MG/ML SYRINGE IV PRN (15:40)
[2021-04-03] MEDS ORDERED: Albuterol HFA INHALER 8 gm MDI INH PRN (15:46)
[2021-04-03] MEDS ORDERED: Morphine 4 MG/ML VIAL (1 ml) IV PRN (18:44)
[2021-04-03] MEDS ORDERED: Prochlorperazine 5 mg/ml 2 ml VIAL (10 mg) IV PRN (18:44)
[2021-04-03] MEDS ORDERED: fentaNYL 100 mcg/2 ml 50 MCG/ML VIAL IV PRN (18:44)
[2021-04-03] MEDS ORDERED: Naloxone 0.4 mg VIAL 0.4 mg/ml 1 ml VIAL IV PRN (18:44)
[2021-04-03] MEDS ORDERED: Acetaminophen IV 1 GM/100ML 100 ML IV ONE ×2 (18:44→18:59)
[2021-04-03] MEDS ORDERED: Prochlorperazine 5 mg/ml 2 ml VIAL (10 mg) ONE (18:59)
[2021-04-03] MEDS: Lactated Ringers 1000 ml BAG 1,000 ML IV SCH (20:02)
[2021-04-03] MEDS: Magnesium Hydroxide LIQ 30 ML UDC PO SCH (22:14)
[2021-04-03] MEDS: Clindamycin 600 MG/D5W BAG 600 MG/50 ML BAG IV SCH (23:36)
[2021-04-04 06:34] LABS: Hematocrit 39 % (35-47); Hemoglobin 12.7 g/dL (12.0-16.0); Mean Platelet Volume 7.7 fL (7.4-10.4); Platelet Count 235 10^3/uL (150-450)
[2021-04-04] MEDS: Lactated Ringers 1000 ml BAG 1,000 ML IV SCH (06:56)
[2021-04-04 07:23] LABS: Calcium 8.4 mg/dL (8.6-10.3); EGFR African American 74.6 (>60); EGFR Non-African American 61.7 (>60); Potassium 4.3 mmol/L (3.5-5.0)
[2021-04-04] MEDS: Clindamycin 600 MG/D5W BAG 600 MG/50 ML BAG IV SCH ×2 (08:09→15:30)
[2021-04-04] MEDS: Magnesium Hydroxide LIQ 30 ML UDC PO SCH (08:43)
[2021-04-04] MEDS ORDERED: Vitamin THERAPEUTIC TAB PO SCH (09:00)
[2021-04-04 16:04] VITALS: BP 104/62
== END 2021-04-04 16:15 | disposition home or self-care (01) | DRG 302 ==
LOC: AA 11:57 → SSU 19:12
PROVIDERS: ADMIT Orthopaedic Surgery Adult Reconstructive Orthopaedic Surgery; ATTEND Orthopaedic Surgery Adult Reconstructive Orthopaedic Surgery

== ENCOUNTER 2024-06-08 13:23 | Observation (INO) ==
[~2024-06-08 13:23] MED LIST changes: +Acetaminophen IV 1 GM/100ML 1,000 MG/100 ML BAG IV ONE; -Dexamethasone IV 4 MG/ML VIAL 1 ml VIAL IV SLOW PU ONE; -Famotidine IV 10 MG/ML 2 ml VIAL (20 mg) IV ONE; +Metoclopramide 5 MG/ML VIAL (10 mg) IV PRN; +NS 0.45% 1000 ml BAG 1,000 ML IV SCH; +Naloxone 0.4 mg VIAL 0.4 mg/ml 1 ml VIAL IV PRN; +Ondansetron 4 mg VIAL 2 MG/ML 2 ml VIAL IV PRN; +fentaNYL 100 mcg/2 ml 50 MCG/ML VIAL IV PRN
[2024-06-08] MEDS ORDERED: ceFAZolin 2 GM PREMIX 2 GM/50 ML BAG ONE (13:54)
[2024-06-08] MEDS ORDERED: Tranexamic Acid 1 GM/100ML BAG 2,000 MG/200 ML BAG IV ONE (13:55)
[2024-06-08] MEDS ORDERED: Scopolamine 1 mg/72hr PATCH ONE (14:02)
[2024-06-08] MEDS ORDERED: ROPIVACAINE 5 MG/ML 30 ML BTL (0.5%) ONE ×4 (14:04→16:48)
[2024-06-08 14:23] LABS: Rapid COVID-19 Molecular Undetected (Undetected)
[2024-06-08] MEDS: Scopolamine 1 mg/72hr PATCH TRANSDERM ONE (14:40)
[2024-06-08] MEDS ORDERED: fentaNYL 100 mcg/2 ml 50 MCG/ML VIAL ONE (16:20)
[2024-06-08] MEDS ORDERED: Midazolam 2 mg/2 ml VIAL 1 mg/ml 2 ml VIAL (2 mg) ONE ×3 (16:20→17:58)
[2024-06-08] MEDS ORDERED: Magnesium Hydroxide LIQ 30 ML UDC PO PRN (18:31)
[2024-06-08] MEDS ORDERED: Lactulose 30 ml UDC PO PRN (18:31)
[2024-06-08] MEDS ORDERED: Morphine 2 MG/ML SYRINGE IV PRN (18:31)
[2024-06-08] MEDS ORDERED: Glycopyrrolate IV 0.2 MG/ML 1 ML VIAL ONE (18:50)
[2024-06-08] MEDS ORDERED: Atropine 1 MG/ML INJ 1 ML VIAL ONE (18:55)
[2024-06-08] MEDS: Lactated Ringers 1000 ml BAG 1,000 ML IV SCH (22:10)
[2024-06-08] MEDS: Benzocaine/Menthol LOZ PO PRN (23:41)
[2024-06-08] MEDS: Calcium Carb (TUMS) 500 mg CHEW TAB PO PRN (23:41)
[2024-06-08] MEDS: Ondansetron 4 mg VIAL 2 MG/ML 2 ml VIAL IV PRN (23:58)
[2024-06-09] MEDS: Magnesium Hydroxide LIQ 30 ML UDC PO SCH (00:25)
[2024-06-09] MEDS: ceFAZolin 2 GM PREMIX 2 GM/50 ML BAG IV SCH (02:53)
[2024-06-09 06:26] LABS: Hematocrit 38.7 % (35-45); Hemoglobin 12.9 g/dL (11.5-14.3); Mean Platelet Volume 8.2 fL (7.5-11.2); Platelet Count 209 10^3/uL (150-450)
[2024-06-09 06:45] LABS: Calcium 9.2 mg/dL (8.6-10.3); Creatinine, Serum 0.68 mg/dL (0.51-0.95); Potassium 4.3 mmol/L (3.5-5.0); eGFR CKD-EPI 95.4 (>60)
[2024-06-09] MEDS: Vitamin THERAPEUTIC TAB PO SCH (08:33)
[2024-06-09] MEDS: Ondansetron ODT 4 mg TAB 4 MG TAB PO PRN (08:33)
[2024-06-09 09:43] VITALS: BP 104/54
== END 2024-06-09 14:00 | disposition home or self-care (01) ==
LOC: OR 13:23 → SSU 13:23
PROVIDERS: ADMIT Orthopaedic Surgery Adult Reconstructive Orthopaedic Surgery; ATTEND Orthopaedic Surgery Adult Reconstructive Orthopaedic Surgery